=== PATIENT | female | born 1995 | race Two or more races ===

== ENCOUNTER 2017-12-01 22:36 | Emergency (ER) | payer OTHER ==
[2017-12-01] MEDS ORDERED: NS 1,000 ML IV ONE (23:00)
[2017-12-01 23:33] LABS: PLATELET COUNT 249 10^3/uL (150-400)
[2017-12-02 00:30] VITALS: O2SAT 97
--- NOTE | 2017-12-02 00:47 | EDPHY ---
H & P Stated Complaint: 5 weeks with vaginal bleeding that started 30min SPORTS AGENT Time Seen by Provider: 12/01/17 22:55 HPI/ROS: Chief complaint: with vaginal bleeding History of present illness: This is a 22-year-old female, 1, para 0, who believes she is 5 weeks who presents to the emergency department with vaginal bleeding. She reports the onset of symptoms over the last day. She describes dark blood. No bright red blood. No clot passage. Symptoms have been persistent. She has used 1-2 pads today although she soaked to them. There has been no actual pain including no pelvic pain. No systemic symptoms such as lightheadedness or dizziness or weakness. She did have blood studies performed by her carpentry teacher over the last day but has not had any imaging studies. Patient and her requested a female provider perform gynecologic examination I have discussed with her unfortunately we only have a male doctor and male physician assistant hall director on duty this evening. However I discussed at this time I do not believe I will need to do a pelvic examination. Any examination I do do I will always have a female present in the room with me. Further any invasive studies including blood studies and ultrasound can be performed by a female healthcare provider this evening The patient and voiced to me that this was acceptable to them. Review of systems: A 10 point review of systems was obtained and other than described above was negative - Personal History LMP (Females 10-55): Over 28 Days Ago Current Tetanus/Diphtheria Vaccine: No Current Tetanus Diphtheria and Acellular Pertussis (TDAP): No - Medical/Surgical History Hx Asthma: No Hx Chronic Respiratory Disease: No Hx Diabetes: No Hx Cardiac Disease: No Hx Renal Disease: No Hx Cirrhosis: No Hx Alcoholism: No Hx HIV/AIDS: No Hx Splenectomy or Spleen Trauma: No Other PMH: denies - Social History Smoking Status: Never smoked - Physical Exam Exam: General Appearance: Alert, no distress. Eyes: Pupils equal and round no pallor or injection. ENT, Mouth: Mucous membranes moist. Respiratory: There are no retractions, lungs are clear to auscultation. Cardiovascular: Regular rate and rhythm. Gastrointestinal: Abdomen is soft and non tender, no masses, bowel sounds normal. Neurological: Alert and oriented x4. Strength and sensation intact and symmetrical. Skin: Warm and dry, no rashes. Musculoskeletal: Extremities are symmetrical, full range of motion. Psychiatric: Patient is oriented X 3, there is no agitation. Constitutional: Initial Vital Signs Temperature (C) 36.7 C 12/01/17 22:48 Heart Rate 97 12/01/17 22:48 Respiratory Rate 16 12/01/17 22:48 Blood Pressure 98/61 L 12/01/17 22:48 O2 Sat (%) 97 12/01/17 22:48 O2 Delivery Mode Room Air Allergies/Adverse Reactions: No Known Allergies Allergy (Unverified 12/01/17 22:52) Home Medications: Medication Instructions Recorded Davinhastom 12/01/17 Medical Decision Making - Diagnostics Imaging: Discussed imaging studies w/ teacher physically impaired Radiologist ED Course/Re-evaluation: I reviewed patient's recent blood studies. She is blood type of A positive Her quantitative HCG on 11/29/2017 was [id number], her repeat HCG only a few hours ago was 11,322 Patient is discussed with my secondary supervising physician Dr. Corwin Strange. Patient presents to the emergency department stating she is with vaginal bleeding. She is nontoxic. Vital signs are stable. Quantitative HCGs were obtained yesterday and today by her doctor and appear to be increasing. Her CBC is stable. Urine is negative. Ultrasound as listed. She is discharged home. Home care is discussed. She is to follow up with her OBGYN tomorrow. Return precautions are given. Patient and voiced understanding and agreement with plan. - Data Points Laboratory Results: Laboratory Results 12/01/17 23:00 12/01/17 23:00 12/02/17 12/01/17 12/01/17 00:30 23:00 23:00 WBC 8.57 10^3/uL 10^3/uL (3.80-9.50) RBC 4.99 10^6/uL 10^6/uL (4.18-5.33) Hgb 14.4 g/dL g/dL (12.6-16.3) Hct 41.0 % % (38.0-47.0) MCV 82.2 fL fL (81.5-99.8) MCH 28.9 pg pg (27.9-34.1) MCHC 35.1 g/dL g/dL (32.4-36.7) RDW 11.9 % % (11.5-15.2) Plt Count 249 10^3/uL 10^3/uL (150-400) MPV 9.4 fL fL (8.7-11.7) Neut % (Auto) 56.8 % % (39.3-74.2) Lymph % (Auto) 35.4 % % (15.0-45.0) [place] % (Auto) 6.3 % % (4.5-13.0) Eos % (Auto) 0.9 % % (0.6-7.6) Baso % (Auto) 0.2 % L % (0.3-1.7) Nucleat RBC Rel Count 0.0 % % (0.0-0.2) Absolute Neuts (auto) 4.87 10^3/uL 10^3/uL (1.70-6.50) Absolute Lymphs (auto) 3.03 10^3/uL H 10^3/uL (1.00-3.00) Absolute Monos (auto) 0.54 10^3/uL 10^3/uL (0.30-0.80) Absolute Eos (auto) 0.08 10^3/uL 10^3/uL (0.03-0.40) Absolute Basos (auto) 0.02 10^3/uL 10^3/uL (0.02-0.10) Absolute Nucleated RBC 0.00 10^3/uL 10^3/uL (0-0.01) Immature Gran % 0.4 % % (0.0-1.1) Immature Gran # 0.03 10^3/uL 10^3/uL (0.00-0.10) Sodium 137 mEq/L mEq/L (135-145) Potassium 4.0 mEq/L mEq/L (3.5-5.2) Chloride 101 mEq/L mEq/L (97-110) Carbon Dioxide 20 mEq/l L mEq/l (22-31) Anion Gap 16 mEq/L mEq/L (8-16) BUN 16 mg/dL mg/dL (7-23) Creatinine 0.7 mg/dL mg/dL (0.6-1.0) Estimated GFR > 60 Glucose 89 mg/dL mg/dL (70-100) Calcium 10.1 mg/dL mg/dL (8.5-10.4) Urine Color PALE YELLOW Urine Appearance CLEAR Urine pH 6.0 (5.0-7.5) Ur Specific [place] 1.003 (1.002-1.030) Urine Protein NEGATIVE (NEGATIVE) Urine Ketones NEGATIVE (NEGATIVE) Urine Blood 2+ H (NEGATIVE) Urine Nitrate NEGATIVE (NEGATIVE) Urine Bilirubin NEGATIVE (NEGATIVE) Urine Urobilinogen NEGATIVE EU EU (0.2-1.0) Ur Leukocyte Esterase NEGATIVE (NEGATIVE) Urine RBC 1-3 /hpf /hpf (0-3) Urine WBC 1-3 /hpf /hpf (0-3) Ur Epithelial Cells NONE SEEN /lpf /lpf (NONE-1+) Urine Mucus TRACE /lpf /lpf (NONE-1+) Urine Glucose NEGATIVE (NEGATIVE) Medications Given: Discontinued Medications Sodium Chloride (Ns) 1,000 mls @ 0 mls/hr IV EDNOW ONE; Wide Open PRN Reason: Protocol Stop: 12/01/17 23:01 Last Admin: 12/01/17 23:11 Dose: 1,000 mls Departure - Departure Disposition: Home, Routine, Self-Care Clinical Impression: Threatened Subchorionic hematoma Qualifiers: Fetus number: single or unspecified fetus Trimester: first trimester Qualified Code(s): O41.8X10 - Other specified disorders of amniotic fluid and membranes, first trimester, not applicable or unspecified; O46.8X1 - Other antepartum hemorrhage, first trimester; O46.8X1 - Other antepartum hemorrhage, first trimester Condition: Good Instructions: Threatened Miscarriage (ED) Additional Instructions: Please call and follow up with your OBGYN tomorrow for recheck Maintain pelvic rest as discussed, do not engage in sexual intercourse, do not use tampons, do not do show or placed anything else in the vagina until cleared by your doctor If symptoms worsen or new symptoms develop return to the emergency room for recheck Referrals: NONE *PRIMARY CARE P,. [Primary Care Provider] - As per Instructions [facility],. [Clinic] - As per Instructions Ana Maria Borrego CNM [Certified Nurse Craft Superintendent] - As per Instructions
[2017-12-02 01:26] VITALS: BP 119/73; PULSE 86; RESP 18; TEMP 98.6
== END 2017-12-02 01:26 | disposition home or self-care (01) ==
PROC: 3E0337Z Introduction of Electrolytic and Water Balance Substance into Peripheral Vein, Percutaneous Approach (ICD-10-PCS; principal; 2017-12-01)
DX: O36.8910 Maternal care for other specified fetal problems, first trimester, not applicable or unspecified (principal); E86.9 Volume depletion, unspecified; Z3A.01 Less than 8 weeks gestation of pregnancy

== ENCOUNTER 2017-12-03 13:23 | Emergency (ER) | payer OTHER ==
[2017-12-03] MEDS ORDERED: ONDANSETRON 4 MG/2 ML VIAL ONE (13:35)
--- NOTE | 2017-12-03 13:37 | EDPHY ---
H & P Stated Complaint: 5 weeks n/v Time Seen by Provider: 12/03/17 13:36 HPI/ROS: Chief Complaint: , vomiting HPI: 22-year-old who is 5 weeks based on ultrasound 2 days ago is presenting with nausea and vomiting today. She was seen here 2 days ago with vaginal bleeding and diagnosed with a subchorionic hemorrhage. She is continuing to have some spotting but no evens bright red blood. No significant pelvic cramping. No fevers or chills. She has been unable to keep any fluids down today. She has not been taking any antiemetics. ROS: 10 point Review of Systems is negative except as noted in the HPI. PMH: Denies Social History: No smoking, no alcohol, no recreational drug use Family History: non-contributory Physical Exam: Gen: Awake, Alert, No Distress HEENT: Nose: no rhinorrhea Eyes: PERRLA, EOMI Mouth: Moist mucosa Neck: Supple, no JVD Chest: nontender, lungs clear to auscultation Heart: S1, S2 normal, no murmur Abd: Soft, non-tender, no guarding Back: no CVA tenderness, no midline tenderness Ext: no edema, non-tender Skin: no rash Neuro: CN II-XII intact, Sensation grossly intact, Strength 5/5 in bilateral upper and lower extremities - Personal History LMP (Females 10-55): Current Tetanus/Diphtheria Vaccine: Yes - Medical/Surgical History Hx Asthma: No Hx Chronic Respiratory Disease: No Hx Diabetes: No Hx Cardiac Disease: No Hx Renal Disease: No Hx Cirrhosis: No Hx Alcoholism: No Hx HIV/AIDS: No Hx Splenectomy or Spleen Trauma: No Other PMH: denies - Social History Smoking Status: Never smoked Constitutional: Initial Vital Signs Temperature (C) 36.6 C 12/03/17 13:29 Heart Rate 97 12/03/17 13:29 Respiratory Rate 17 12/03/17 13:29 Blood Pressure 90/60 L 12/03/17 13:29 O2 Sat (%) 96 12/03/17 13:29 O2 Delivery Mode Room Air Allergies/Adverse Reactions: No Known Allergies Allergy (Verified 12/03/17 13:28) Home Medications: Medication Instructions Recorded Sagar 12/01/17 Ondansetron Odt [Zofran Odt 4 mg 4 mg PO Q4 PRN #10 tab 12/03/17 (*)] Progesterone 12/03/17 Medical Decision Making ED Course/Re-evaluation: Patient is improved. She is tolerating p. o.. Will discharge with Zofran to go. She has an appointment with her OBGYN on Tuesday. She will return for any concerns. - Data Points Medications Given: Discontinued Medications Sodium Chloride (Ns) 1,000 mls @ 0 mls/hr IV ONCE ONE PRN Reason: Wide Open Stop: 12/03/17 13:48 Last Admin: 12/03/17 13:47 Dose: 1,000 mls Ondansetron HCl (Zofran) 4 mg IVP EDNOW ONE Stop: 12/03/17 13:48 Last Admin: 12/03/17 13:47 Dose: 4 mg Departure - Departure Disposition: Home, Routine, Self-Care Clinical Impression: Hyperemesis gravidarum Condition: Good Instructions: Hyperemesis Gravidarum (ED) Additional Instructions: Follow up with her OBGYN as scheduled on Tuesday. You may take Zofran every 8 hr as needed for nausea. Return to the emergency department for increasing cramping, worsening vaginal bleeding, uncontrolled nausea or vomiting, fevers, or any other concerns. Referrals: NONE *PRIMARY CARE P,. [Primary Care Provider] - As per Instructions Prescriptions: Ondansetron Odt [Zofran Odt 4 mg (*)] 4 mg PO Q4 PRN #10 tab PRN Reason: nausea
[2017-12-03] MEDS ORDERED: ONDANSETRON 4 MG/2 ML VIAL IVP ONE (13:47)
[2017-12-03] MEDS ORDERED: NS 1,000 ML IV ONE (13:47)
[2017-12-03 15:00] VITALS: BP 109/60; PULSE 90; RESP 16; TEMP 98.2; O2SAT 99
== END 2017-12-03 15:02 | disposition home or self-care (01) ==
DX: O21.0 Mild hyperemesis gravidarum (principal); Z3A.01 Less than 8 weeks gestation of pregnancy
CPT/HCPCS: 96374; J2405

== ENCOUNTER → 2017-12-05 | Outpatient (CLI) | payer OTHER | LOC: FIMAGING 11:57 | PROVIDERS: ATTEND Midwife | DX: O20.8 Other hemorrhage in early pregnancy (principal); Z3A.01 Less than 8 weeks gestation of pregnancy ==

== ENCOUNTER 2017-12-06 21:44 | Emergency (ER) | payer OTHER ==
[2017-12-06 21:49] VITALS: TEMP 98.2
[2017-12-06 22:49] LABS: PLATELET COUNT 274 10^3/uL (150-400)
[2017-12-06] MEDS ORDERED: NS 1,000 ML IV ONE (22:53)
[2017-12-06] MEDS ORDERED: PROMETHAZINE HCL 25 MG/ML INJ IVP ONE (22:54)
--- NOTE | 2017-12-06 22:55 | EDPHY ---
H & P Stated Complaint: pt says she is 6 wks preg, says has had ongoing vag bleeding x5 days Time Seen by Provider: 12/06/17 22:42 HPI/ROS: HPI The patient presents with vaginal bleeding which has been present for the last 5 days though has become more heavy. The patient is passing more red blood than usual, soaking about 2 quarters size of a pad. She has had mild cramping which is now resolved. She has also had nausea and vomiting, 10 episodes today. She is 6 weeks , has been followed by Ana Maria Clements. She has been having serial ultrasounds which have demonstrated subchorionic hemorrhage, yesterday heart rate was 54. REVIEW OF SYSTEMS Constitutional: No fever, no chills. Eyes: No discharge. ENT: No sore throat. Cardiovascular: No chest pain, no palpitations. Respiratory: No cough, no shortness of breath. Gastrointestinal: See HPI Genitourinary: No hematuria. Musculoskeletal: No back pain. Skin: No rashes. Neurological: No headache. PMHx: Healthy Soc Hx: Housed PHYSICAL General Appearance: Alert, no distress Eyes: Pupils equal and round no pallor or injection ENT, Mouth: Mucous membranes dry Respiratory: There are no retractions, lungs are clear to auscultation Cardiovascular: Regular rate and rhythm Gastrointestinal: Abdomen is soft and non-tender, no masses, bowel sounds normal Neurological: A&O, moves all extremities Skin: Warm and dry, no rashes Musculoskeletal: Neck is supple non tender Extremities: symmetrical, full range of motion Psychiatric: Patient is oriented X 3, there is no agitation Source: Patient Exam Limitations: No limitations - Personal History LMP (Females 10-55): - Medical/Surgical History Hx Asthma: No Hx Chronic Respiratory Disease: No Hx Diabetes: No Hx Cardiac Disease: No Hx Renal Disease: No Hx Cirrhosis: No Hx Alcoholism: No Hx HIV/AIDS: No Hx Splenectomy or Spleen Trauma: No Other PMH: denies - Social History Smoking Status: Never smoked Constitutional: Initial Vital Signs Temperature (C) 36.8 C 12/06/17 21:46 Heart Rate 97 12/06/17 21:46 Respiratory Rate 16 12/06/17 21:46 Blood Pressure 104/73 12/06/17 21:46 O2 Sat (%) 97 12/06/17 21:46 O2 Delivery Mode Room Air Allergies/Adverse Reactions: No Known Allergies Allergy (Verified 12/06/17 21:50) Home Medications: Medication Instructions Recorded Ondansetron Odt [Zofran Odt 4 mg 4 mg PO Q4 PRN #10 tab 12/03/17 (*)] Progesterone 12/03/17 Doxylamine/Pyridoxine HCl (B6) 1 each PO BID PRN #30 tablet. 12/07/17 [Jennifer Coon 10-10 mg Tablet] Medical Decision Making - Diagnostics Imaging Results: Imaging Impressions Obstetrics Ultrasound 12/06/17 22:51 Impression: Single live intrauterine gestation with estimated age by ultrasound of 5 weeks 6 days. The subchorionic hemorrhage eccentric to the right of the gestational sac has increased in size currently measuring 4.3 x 3.5 x 2.6 cm. Results called and discussed with Zeynep Tirado MD on 12/07/2017 at 0:15 Imaging: Discussed imaging studies w/ scallop cutter Radiologist, I viewed and interpreted images myself Differential Diagnosis: 22-year-old female , estimated gestational age of 6 weeks, presents with vaginal bleeding for 5 days, now becoming more heavy. Also complaining of nausea with vomiting multiple times during the course of the day for last several days. In the emergency department, patient did not have any ongoing bleeding. IV line was established. CBC was checked and hemoglobin is at baseline. HCG his appropriately doubling. Ultrasound was performed which demonstrated IUP with heart rate of about 100, subchorionic hemorrhage is now larger than it was yesterday. Patient received 2 L of normal saline, Phenergan, Zofran with improvement in her nausea. I will discharge her home with a prescription for diclygis and instructions to eat small frequent meals. She feels well enough to go home. She has follow up with her treating provider in several days. We have discussed return precautions for the emergency department. Differential diagnosis includes threatened , missed , hyperemesis gravidarum. - Data Points Laboratory Results: Laboratory Results 12/06/17 22:43 12/06/17 12/06/17 22:43 22:43 WBC 11.07 10^3/uL H 10^3/uL (3.80-9.50) RBC 5.15 10^6/uL 10^6/uL (4.18-5.33) Hgb 14.8 g/dL g/dL (12.6-16.3) Hct 40.8 % % (38.0-47.0) MCV 79.2 fL L fL (81.5-99.8) MCH 28.7 pg pg (27.9-34.1) MCHC 36.3 g/dL g/dL (32.4-36.7) RDW 11.5 % % (11.5-15.2) Plt Count 274 10^3/uL 10^3/uL (150-400) MPV 9.3 fL fL (8.7-11.7) Neut % (Auto) 62.9 % % (39.3-74.2) Lymph % (Auto) 29.6 % % (15.0-45.0) [place] % (Auto) 6.9 % % (4.5-13.0) Eos % (Auto) 0.1 % L % (0.6-7.6) Baso % (Auto) 0.2 % L % (0.3-1.7) Nucleat RBC Rel Count 0.0 % % (0.0-0.2) Absolute Neuts (auto) 6.97 10^3/uL H 10^3/uL (1.70-6.50) Absolute Lymphs (auto) 3.28 10^3/uL H 10^3/uL (1.00-3.00) Absolute Monos (auto) 0.76 10^3/uL 10^3/uL (0.30-0.80) Absolute Eos (auto) 0.01 10^3/uL L 10^3/uL (0.03-0.40) Absolute Basos (auto) 0.02 10^3/uL 10^3/uL (0.02-0.10) Absolute Nucleated RBC 0.00 10^3/uL 10^3/uL (0-0.01) Immature Gran % 0.3 % % (0.0-1.1) Immature Gran # 0.03 10^3/uL 10^3/uL (0.00-0.10) Beta HCG, Quant 90281.00 mIU/mL H mIU/mL (0.00-4.83) Medications Given: Discontinued Medications Sodium Chloride (Ns) 1,000 mls @ 0 mls/hr IV EDNOW ONE; Wide Open PRN Reason: Protocol Stop: 12/06/17 22:54 Last Admin: 12/06/17 23:01 Dose: 1,000 mls Sodium Chloride (Ns) 1,000 mls @ 0 mls/hr IV EDNOW ONE; Wide Open PRN Reason: Protocol Stop: 12/07/17 00:41 Last Admin: 12/07/17 00:47 Dose: 1,000 mls Ondansetron HCl (Zofran) 4 mg IVP EDNOW ONE Stop: 12/07/17 00:41 Last Admin: 12/07/17 00:47 Dose: 4 mg Promethazine HCl (Phenergan) 6.25 mg IVP ONCE ONE Stop: 12/06/17 22:55 Last Admin: 12/06/17 23:02 Dose: 6.25 mg Departure - Departure Disposition: Home, Routine, Self-Care Clinical Impression: Threatened in first trimester Nausea and vomiting Qualifiers: Vomiting type: unspecified Vomiting Intractability: non-intractable Qualified Code(s): R11.2 - Nausea with vomiting, unspecified Condition: Good Instructions: Threatened Miscarriage (ED), Hyperemesis Gravidarum (ED) Additional Instructions: Please follow-up with your OBGYN on the phone tomorrow. You should return to the emergency room if your soaking through more than 1 pad per hour. You should eat small frequent meals. Referrals: Ana Maria oBrrego, CNM [Certified Nurse Aspnet Developer] - As per Instructions Prescriptions: Doxylamine/Pyridoxine HCl (B6) [Jennifer Coon 10-10 mg Tablet] 1 each PO BID PRN # 30 tablet. PRN Reason: Nausea/Vomiting, Can'T Take Po
[2017-12-07] MEDS ORDERED: ONDANSETRON 4 MG/2 ML VIAL IVP ONE (00:40)
[2017-12-07] MEDS ORDERED: NS 1,000 ML IV ONE (00:40)
[2017-12-07 01:33] VITALS: BP 106/65; PULSE 74; RESP 15; O2SAT 94
== END 2017-12-07 01:55 | disposition home or self-care (01) ==
DX: O20.0 Threatened abortion (principal); E86.9 Volume depletion, unspecified; O21.9 Vomiting of pregnancy, unspecified; Z3A.01 Less than 8 weeks gestation of pregnancy
CPT/HCPCS: 96374; J2405; J2550

== ENCOUNTER 2017-12-09 10:35 | Emergency (ER) | payer OTHER ==
[2017-12-09] MEDS ORDERED: ONDANSETRON 4 MG/2 ML VIAL IVP ONE (11:36)
[2017-12-09] MEDS ORDERED: NS 1,000 ML IV ONE ×2 (11:46→11:53)
[2017-12-09] MEDS ORDERED: PROMETHAZINE HCL 25 MG/ML INJ IVP ONE (11:51)
[2017-12-09] MEDS ORDERED: METOCLOPRAMIDE 10 MG/2 ML VIAL IVP ONE (11:51)
[2017-12-09 12:06] LABS: PLATELET COUNT 296 10^3/uL (150-400)
--- NOTE | 2017-12-09 12:35 | EDPHY ---
General Narrative: CHIEF COMPLAINT: Nausea vomiting HISTORY OF PRESENT ILLNESS: Patient complains of nausea vomiting for the past 2-3 days. Gradual onset constant duration. Vomiting too numerous to count episodes per day with some retching and dry heaving. She has no abdominal pain but does have some mild cramping. She has minimal spotting, which has significantly improved from earlier this week when she was diagnosed with a threatened miscarriage. She also has been managed by OB for subchorionic hemorrhage. Reportedly Rh positive. She has no fever. No chest pain. No diarrhea. No constipation. No other associated complaints or modifying factors. REVIEW OF SYSTEMS: Ten systems reviewed and are negative unless otherwise noted in the HPI PCP: None SPECIALISTS: Ana Maria Borrego OB PAST MEDICAL HISTORY: Denies PAST SURGICAL HISTORY: No surgical history SOCIAL HISTORY: Nonsmoker FAMILY HISTORY: Noncontributory EXAMINATION General Appearance: Alert, no distress Head: normocephalic, atraumatic Eyes: Pupils equal and round, no conjunctival pallor or injection ENT, Mouth: Mucous membranes dry. Airway widely patent. Neck: Normal inspection, supple, non-tender Respiratory: Lungs are clear to auscultation Cardiovascular: Regular rate and rhythm. No murmur Gastrointestinal: Abdomen is soft and nontender. No tympany. No rigidity. No distention. No guarding. Benign abdominal examination Back: non-tender, no bony abnormalities Neurological: A&O, nonfocal, normal gait Skin: Warm and dry, no rash no petechiae or purpura Extremities: Nontender, no pedal edema Psychiatric: Mood and affect normal DIFFERENTIAL DIAGNOSES: Including but not limited to hyperemesis gravidarum, dehydration, threatened miscarriage, miscarriage MDM: 12:00 p.m. Hyper emesis and first-trimester . Vital signs within normal limits with mild tachycardia. No abdominal pain. She does have some spotting that is ongoing with previous threatened miscarriage diagnosis. She is in no acute distress but I have ordered IV fluid, IV promethazine, IV Reglan IV Benadryl 1:00 p.m. Laboratory studies reveal mild dehydration. I have re-evaluated this time patient starting to improve. Half of her IV fluid has infused she is improving. Recheck 2:30 p.m. Patient re-evaluated. Abdominal examination remains benign. Attempted p.o. trial. 3:00 p.m. Patient has tolerated intake by mouth of liquids. Abdominal exam remains benign. She has no pain. Vital signs are stable. We discussed discharge home with further antiemetics including promethazine and likely just. We discussed ED precautions for bleeding, any pelvic pain, intolerance of p. o., fever. We also discussed close follow up with her established OB provider. She is comfortable this plan as is her spouse at bedside. She is discharged home stable condition. SUPERVISION: Patient was independently examined, but I discussed the case with my secondary supervising physician Dr. Hernandez - History Smoking Status: Never smoked - Objective Vital Signs: Initial Vital Signs Temperature (C) 98.6 F 12/09/17 10:41 Heart Rate 105 H 12/09/17 10:41 Respiratory Rate 22 H 12/09/17 10:41 Blood Pressure 80/58 L 12/09/17 10:41 O2 Sat (%) 97 12/09/17 10:41 O2 Delivery Mode Room Air Allergies/Adverse Reactions: No Known Allergies Allergy (Verified 12/06/17 21:50) Home Medications: Medication Instructions Recorded Ondansetron Odt [Zofran Odt 4 mg 4 mg PO Q4 PRN #10 tab 12/03/17 (*)] Progesterone 12/03/17 Doxylamine/Pyridoxine HCl (B6) 1 each PO DAILY #30 tablet. 12/09/17 [Jennifer Coon 10-10 mg Tablet] Promethazine HCl [Phenergan 25mg 25 mg PO Q8 PRN #12 tab 12/09/17 (*)] Laboratory Results: Laboratory Results 12/09/17 11:11 12/09/17 11:11 12/09/17 12/09/17 11:11 11:11 WBC 10.18 10^3/uL H 10^3/uL (3.80-9.50) RBC 5.27 10^6/uL 10^6/uL (4.18-5.33) Hgb 15.2 g/dL g/dL (12.6-16.3) Hct 42.3 % % (38.0-47.0) MCV 80.3 fL L fL (81.5-99.8) MCH 28.8 pg pg (27.9-34.1) MCHC 35.9 g/dL g/dL (32.4-36.7) RDW 11.6 % % (11.5-15.2) Plt Count 296 10^3/uL 10^3/uL (150-400) MPV 9.7 fL fL (8.7-11.7) Neut % (Auto) 72.1 % % (39.3-74.2) Lymph % (Auto) 22.1 % % (15.0-45.0) [place] % (Auto) 5.0 % % (4.5-13.0) Eos % (Auto) 0.2 % L % (0.6-7.6) Baso % (Auto) 0.2 % L % (0.3-1.7) Nucleat RBC Rel Count 0.0 % % (0.0-0.2) Absolute Neuts (auto) 7.34 10^3/uL H 10^3/uL (1.70-6.50) Absolute Lymphs (auto) 2.25 10^3/uL 10^3/uL (1.00-3.00) Absolute Monos (auto) 0.51 10^3/uL 10^3/uL (0.30-0.80) Absolute Eos (auto) 0.02 10^3/uL L 10^3/uL (0.03-0.40) Absolute Basos (auto) 0.02 10^3/uL 10^3/uL (0.02-0.10) Absolute Nucleated RBC 0.00 10^3/uL 10^3/uL (0-0.01) Immature Gran % 0.4 % % (0.0-1.1) Immature Gran # 0.04 10^3/uL 10^3/uL (0.00-0.10) Sodium 136 mEq/L mEq/L (135-145) Potassium 3.7 mEq/L mEq/L (3.5-5.2) Chloride 100 mEq/L mEq/L (97-110) Carbon Dioxide 17 mEq/l L mEq/l (22-31) Anion Gap 19 mEq/L H mEq/L (8-16) BUN 14 mg/dL mg/dL (7-23) Creatinine 0.7 mg/dL mg/dL (0.6-1.0) Estimated GFR > 60 Glucose 95 mg/dL mg/dL (70-100) Calcium 10.8 mg/dL H mg/dL (8.5-10.4) Phosphorus 2.1 mg/dL L mg/dL (2.5-4.5) Lipase 44 IU/L IU/L (23-300) Beta HCG, Quant 47735.00 mIU/mL H mIU/mL (0.00-4.83) Medications Given: Discontinued Medications Diphenhydramine HCl (Benadryl Injection) 25 mg IVP EDNOW ONE Stop: 12/09/17 11:52 Last Admin: 12/09/17 12:06 Dose: 25 mg Sodium Chloride (Ns) 1,000 mls @ 0 mls/hr IV ONCE ONE PRN Reason: Wide Open Stop: 12/09/17 11:47 Last Admin: 12/09/17 12:06 Dose: 1,000 mls Sodium Chloride (Ns) 1,000 mls @ 0 mls/hr IV EDNOW ONE; Wide Open PRN Reason: Protocol Stop: 12/09/17 11:54 Last Admin: 12/09/17 12:09 Dose: 1,000 mls Metoclopramide HCl (Reglan Injection) 10 mg IVP EDNOW ONE Stop: 12/09/17 11:52 Last Admin: 12/09/17 12:07 Dose: 10 mg Ondansetron HCl (Zofran) 4 mg IVP EDNOW ONE Stop: 12/09/17 11:37 Last Admin: 12/09/17 11:53 Dose: Not Given Promethazine HCl (Phenergan) 12.5 mg IVP ONCE ONE Stop: 12/09/17 11:52 Last Admin: 12/09/17 12:07 Dose: 12.5 mg Departure - Departure Disposition: Home, Routine, Self-Care Clinical Impression: Hyperemesis arising during Condition: Good Instructions: Threatened Miscarriage (ED), Hyperemesis Gravidarum (ED) Additional Instructions: 1. Medications as prescribed as needed 2. Close follow-up with her OB physician 3. ED precautions for worsening vomiting, fever, any abdominal pain, any increasing vaginal bleeding Referrals: Ana Maria Borrego CNM [Certified Nurse Manual Winder] - As per Instructions Prescriptions: Doxylamine/Pyridoxine HCl (B6) [Jennifer Coon 10-10 mg Tablet] 1 each PO DAILY # 30 tablet. Promethazine HCl [Phenergan 25mg (*)] 25 mg PO Q8 PRN #12 tab PRN Reason: Nausea/Vomiting, Use 1st
[2017-12-09 14:18] VITALS: RESP 18
[2017-12-09 15:32] VITALS: BP 95/66; PULSE 80; TEMP 98.2; O2SAT 97
== END 2017-12-09 15:30 | disposition home or self-care (01) ==
DX: O21.0 Mild hyperemesis gravidarum (principal); E86.9 Volume depletion, unspecified; Z3A.01 Less than 8 weeks gestation of pregnancy
CPT/HCPCS: 96374; J1200; J2550; J2765

== ENCOUNTER 2017-12-29 17:14 | Emergency (ER) | payer OTHER ==
[2017-12-29 17:19] VITALS: RESP 16
--- NOTE | 2017-12-29 17:21 | EDPHY ---
HPI/HX/ROS/PE/MDM Narrative: CHIEF COMPLAINT: Nausea, vomiting, 9 weeks HISTORY OF PRESENT ILLNESS: The patient is a 22 y/o female, who is 9 weeks , complaining of worsening nausea and vomiting, onset yesterday. She has been to this ED 4 times in the last month for nausea and vomiting. During these visits they noticed she had a hemorrhage, but this was improving for the past 2 weeks. Ana Maria Clements, her OB, prescribed her Zofran, Phenergan, Benadryl, and a B6 supplement. However, she has been taking these medications less than prescribed. She last took Phenergan 2 weeks ago. Last week she started vomiting 3 times a day; it was worse in the afternoon. Yesterday, she started having vaginal bleeding again, the first time in 2 weeks. Today she saw her OB who preformed an US, with normal findings. However, she was advised to present to the ED for the nausea and vomiting. When she sits or stands up, she becomes lightheaded but does not faint. Her also notes that the patient is constipated and vomited blood yesterday and today. Last took Zofran and B6 last night. No fever, chills, chest pain, shortness of breath, palpitations, diarrhea, urinary complaints, headache. Followed by Dr. Ana Maria Borrego, OB REVIEW OF SYSTEMS: Aside from elements discussed in the HPI, a comprehensive 10-point review of systems was reviewed and is negative. PAST MEDICAL HISTORY: Denies SOCIAL HISTORY: at bedside, originally from [facility], no alcohol, tobacco, or illicit drug use VITAL SIGNS: Reviewed by me GENERAL: Well-developed, well-nourished, resting comfortably in no respiratory distress. HEENT: Atraumatic. Eyes: No icterus, no injection. Mouth: mildly dry mucous membranes. No erythema or lesions. Neck: supple with no adenopathy. LUNGS: Clear to auscultation bilaterally, no wheezes, rhonchi or rales. CARDIAC: Regular rate and rhythm, no rubs, murmurs or gallops. ABDOMEN: Mild epigastric tenderness. Soft, nondistended, bowel sounds normal. BACK: No CVA tenderness. EXTREMITIES: No trauma. No edema. Range of motion is normal throughout. NEURO: Alert and oriented, grossly nonfocal. SKIN: Warm and dry, no rash. PSYCHIATRIC: Normal mentation, no agitation. Portions of this note were transcribed by a medical collections. I personally performed a history, physical exam, medical decision making, and confirmed accuracy of information the transcribed note. ED Course: The patient is a 22 y/o female, who is 9 weeks , presenting with worsening nausea and vomiting, onset yesterday. Today she saw her OB who preformed an US with normal findings. She was advised to present to the ED by her OB for her worsening symptoms. On exam she has mildly dry mucous membranes and has mild epigastric tenderness. Labs ordered. 100mg IV Vitamin B6, 10mg IV Reglan, 25mg IV Benadryl, 4mg IV Zofran, and 2L IV NS administered. 1842: Patient is feeling better after medications. She will be placed on a PO trial. 1912: Reassessed patient and discussed laboratory findings. She is tolerating her PO trial. I have advised her to take the prescriptions from her OB as prescribed. Return precautions provided; patient and her are comfortable with this plan. MDM: Differential diagnosis considered included but not limited to hyperemesis, dehydration, gastroenteritis, alcohol intoxication, drug or alcohol affects. - Data Points Laboratory Results: Laboratory Results 12/29/17 18:00 12/29/17 18:00 Medications Given: Discontinued Medications Diphenhydramine HCl (Benadryl Injection) 25 mg IVP EDNOW ONE Stop: 12/29/17 17:34 Last Admin: 12/29/17 17:58 Dose: 25 mg Sodium Chloride (Ns) 1,000 mls @ 0 mls/hr IV ONCE ONE; Wide Open PRN Reason: Protocol Stop: 12/29/17 17:33 Last Admin: 12/29/17 17:58 Dose: 1,000 mls Sodium Chloride (Ns) 1,000 mls @ 0 mls/hr IV ONCE ONE; Wide Open PRN Reason: Protocol Stop: 12/29/17 17:33 Last Admin: 12/29/17 17:59 Dose: 1,000 mls Metoclopramide HCl (Reglan Injection) 10 mg IVP EDNOW ONE Stop: 12/29/17 17:33 Last Admin: 12/29/17 17:58 Dose: 10 mg Ondansetron HCl (Zofran) 4 mg IVP EDNOW ONE Stop: 12/29/17 17:33 Last Admin: 12/29/17 17:58 Dose: 4 mg Pyridoxine HCl (Vitamin B6) 100 mg IV ONCE ONE Stop: 12/29/17 17:34 Last Admin: 12/29/17 18:39 Dose: 100 mg General Time Seen by Provider: 12/29/17 17:20 Initial Vital Signs: Initial Vital Signs Temperature (C) 36.3 C 12/29/17 17:15 Heart Rate 92 12/29/17 17:15 Respiratory Rate 16 12/29/17 17:15 Blood Pressure 101/68 12/29/17 17:15 O2 Sat (%) 97 12/29/17 17:15 O2 Delivery Mode Room Air Allergies/Adverse Reactions: No Known Allergies Allergy (Verified 12/29/17 17:14) Home Medications: Medication Instructions Recorded Ondansetron Odt [Zofran Odt 4 mg 4 mg PO Q4 PRN #10 tab 12/03/17 (*)] Progesterone 12/03/17 Doxylamine/Pyridoxine HCl (B6) 1 each PO DAILY #30 tablet. 12/09/17 [Jennifer Coon 10-10 mg Tablet] Promethazine HCl [Phenergan 25mg 25 mg PO Q8 PRN #12 tab 12/09/17 (*)] Departure - Departure Disposition: Home, Routine, Self-Care Clinical Impression: Nausea and vomiting during Condition: Good Instructions: Hyperemesis Gravidarum (ED) Additional Instructions: Please take your medications as directed by your water treatment plant engineer, Ana Maria Borrego. Small, frequent sips of fluid. Return to the Emergency Department for uncontrollable fever, shortness of breath , or other worsening of condition. Referrals: Ana Maria Borrego, [id number] [Primary Care Provider] - As per Instructions Report Scribed for: Bonnie Patterson Report Scribed by: Elisabeth Arreola Date of Report: 12/29/17 Time of Report: 17:20
[2017-12-29] MEDS ORDERED: NS 1,000 ML IV ONE ×2 (17:32)
[2017-12-29] MEDS ORDERED: ONDANSETRON 4 MG/2 ML VIAL IVP ONE (17:32)
[2017-12-29] MEDS ORDERED: METOCLOPRAMIDE 10 MG/2 ML VIAL IVP ONE (17:32)
[2017-12-29] MEDS ORDERED: PYRIDOXINE HCL 100 MG/ML VIAL IV ONE (17:33)
[2017-12-29 18:04] VITALS: O2SAT 98
[2017-12-29 18:09] LABS: PLATELET COUNT 249 10^3/uL (150-400)
[2017-12-29 19:25] VITALS: BP 105/53; PULSE 88; TEMP 98.2
== END 2017-12-29 19:24 | disposition home or self-care (01) ==
DX: O21.0 Mild hyperemesis gravidarum (principal); E86.9 Volume depletion, unspecified; Z3A.09 9 weeks gestation of pregnancy
CPT/HCPCS: 96374; J1200; J2405; J2765; J3415